=== PATIENT | male | born 1985 | race Two or more races ===

== ENCOUNTER 2016-10-12 11:09 | Emergency (ER) | payer MEDICAID ==
[~2016-10-12] VITALS: Ht 177.8 cm; Wt 92.3 kg
[~2016-10-12 11:09] MED LIST: AMLO5TAB2 PO; LISI-167 PO
[2016-10-12 12:23] LABS: HEMATOCRIT 48.1 % (39.2-51.8); HEMOGLOBIN 15.7 g/dL (13.7-18.0); WHITE BLOOD COUNT 9.7 x10^3/uL (3.4-10)
[2016-10-12 12:42] LABS: BLOOD UREA NITROGEN 19 mg/dL (7-18)
[2016-10-12 13:02] VITALS: BP 170/115
== END 2016-10-12 13:22 | disposition home or self-care (01) ==
LOC: ED 11:43
DX: L03.012 Cellulitis of left finger (principal); I12.9 Hypertensive chronic kidney disease with stage 1 through stage 4 chronic kidney disease, or unspecified chronic kidney disease; N18.2 Chronic kidney disease, stage 2 (mild); Z72.9 Problem related to lifestyle, unspecified
CPT/HCPCS: 36415; 80048; 82040; 84550; 85025; 99285

== ENCOUNTER 2017-09-20 14:02 | Emergency (ER) | payer MEDICAID ==
[~2017-09-20] VITALS: Ht 177.8 cm; Wt 93.2 kg
[2017-09-20 14:07] VITALS: BP 187/134
== END 2017-09-20 15:41 | disposition home or self-care (01) ==
LOC: ED 15:35
DX: S83.421A Sprain of lateral collateral ligament of right knee, initial encounter (principal); S93.492A Sprain of other ligament of left ankle, initial encounter; V29.49XA Motorcycle driver injured in collision with other motor vehicles in traffic accident, initial encounter; Y93.55 Activity, bike riding; Y92.89 Other specified places as the place of occurrence of the external cause; Y99.8 Other external cause status
CPT/HCPCS: 99284

== ENCOUNTER 2018-12-29 21:50 | Emergency (ER) | payer MEDICAID, OTHER ==
[~2018-12-29] VITALS: Ht 175.3 cm; Wt 89.6 kg
[~2018-12-29 21:50] MED LIST changes: +AMLO-150 PO; -AMLO5TAB2 PO
--- NOTE | 2018-12-29 22:52 | NUR ---
[employer] RN: LAUREN MONROE ORDERED/REQUESTED FROM [facility] SUPPLY PER DR. THURMAN AT THIS TIME.
--- NOTE | 2018-12-29 23:29 | NUR ---
LEFT ROCKER SHOE ON FOOT. CMS INTACT
[2018-12-29 23:38] VITALS: BP 177/126
--- NOTE | 2018-12-29 23:38 | NUR ---
MIRELA SAN AWARE OF VS AT TIME OF DISCHAGED. PROVIDER OKAYED PATIENT FOR DC. PT TO TAKE HOME BLOOD PRESSURE MEDICATIONS WHEN HE GETS HOME. PT DISCHARGED
== END 2018-12-29 23:40 | disposition home or self-care (01) ==
LOC: ED 23:34
DX: T14.8XXA Other injury of unspecified body region, initial encounter (principal); X58.XXXA Exposure to other specified factors, initial encounter; Y93.89 Activity, other specified; Y92.098 Other place in other non-institutional residence as the place of occurrence of the external cause; Y99.8 Other external cause status
CPT/HCPCS: 29515; 93005; 99283